=== PATIENT | male | born 1970 | race Caucasian/White ===

== ENCOUNTER 2021-04-30 21:14 | Inpatient (IN) | payer OTHER ==
[~2021-04-30] VITALS: Ht 177.8 cm; Wt 72.8 kg
--- NOTE | 2021-04-30 21:25 | NUR ---
PT BIBA FOR COVID, PT DIAGNOSED WITH COVID ON SUNDAY AND HAS BEEN GETTING PROGRESSIVELY WORSE SINCE, PT BROUGHT IN ON 4LPM NASAL CANULA AND SATURATION IS AT 92%
[2021-04-30] MEDS ORDERED: DEXAMETHASONE 4 MG/ML, 1ML IVPush ONE (21:30)
[2021-04-30] MEDS ORDERED: ACETAMINOPHEN 500 MG TABLET PO ONE (21:30)
[2021-04-30] MEDS ORDERED: SODIUM CHLORIDE FLUSH 10ML SYR IVF ONE (21:30)
[2021-04-30] MEDS ORDERED: SODIUM CHLORIDE 0.9% 1,000ML IVBOLUS ONE (21:30)
[2021-04-30 21:48] LABS: BASOPHILS % (AUTO) 0 % (0-1); EOSINOPHILS % (AUTO) 0 % (1-7); LYMPHOCYTES % (AUTO) 16 % (22-44); MEAN CORPUSCULAR HEMOGLOBIN 27.9 pg (27.5-34.5); MEAN CORPUSCULAR HGB CONC 33.8 g/dL (33.2-36.2); MEAN PLATELET VOLUME 7.8 fL (7.4-10.4); MONOCYTES % (AUTO) 4 % (2-9); NEUTROPHILS % (AUTO) 80 % (42-75); PLATELET COUNT 183 x10^3/uL (130-400); RED BLOOD COUNT 5.24 x10^6/uL (4.38-5.82); RED CELL DISTRIBUTION WIDTH 14.5 % (9.4-14.8)
[2021-04-30 21:55] LABS: ALANINE AMINOTRANSFERASE 48 U/L (12-78); ALBUMIN 2.8 g/dL (3.4-5.0); ANION GAP 11 mmol/L (5-15); CALCIUM 7.9 mg/dL (8.5-10.1); CHLORIDE 97 mmol/L (98-107); CREATININE 0.83 mg/dL (0.7-1.3)
[2021-04-30 21:59] LABS: ALKALINE PHOSPHATASE 57 U/L (45-117); BILIRUBIN,TOTAL 0.5 mg/dL (0.2-1.0); TOTAL PROTEIN 7.8 g/dL (6.4-8.2); TROPONIN I < 0.015 ng/mL (0.000-0.045)
[2021-04-30] MEDS ORDERED: ACETAMINOPHEN 500 MG TABLET ONE (22:02)
[2021-04-30] MEDS ORDERED: DEXAMETHASONE 4 MG/ML, 1ML ONE (22:02)
[2021-04-30] MEDS ORDERED: AZITHROMYCIN 500 MG in SODIUM CHLORIDE 0.9% 250 ML IV ONE (23:00)
[2021-04-30] MEDS ORDERED: CEFTRIAXONE 1,000 MG in DEXTROSE 5% 50 ML IVPB ONE (23:00)
[2021-04-30 23:14] VITALS: BP 97/62
[2021-05-01] MEDS ORDERED: ACETAMINOPHEN 325 MG TABLET PO PRN ×2 (00:30→08:30)
[2021-05-01] MEDS ORDERED: PROCHLORPERAZINE 10MG TABLET PO PRN (00:30)
[2021-05-01] MEDS ORDERED: DOCUSATE 100 MG CAPSULE PO PRN (00:30)
[2021-05-01] MEDS ORDERED: PHARMACY MAY ADJ FOR RENAL FX MC PRN (00:30)
[2021-05-01 00:40] VITALS: BP 90/62
[2021-05-01] MEDS ORDERED: CEFTRIAXONE 1,000 MG in DEXTROSE 5% 50 ML IVPB ONE (01:00)
[2021-05-01] MEDS ORDERED: SODIUM CHLORIDE 0.9% 1,000 ML IV ONE (01:00)
[2021-05-01] MEDS ORDERED: AZITHROMYCIN 500 MG in SODIUM CHLORIDE 0.9% 250 ML IV ONE (01:00)
[2021-05-01] MEDS: CEFTRIAXONE 2 GM in DEXTROSE 5% 50 ML IVPB SCH (01:24)
[2021-05-01] MEDS: ENOXAPARIN 40 MG/0.4 ML SQ SCH (01:24)
[2021-05-01] MEDS: MELATONIN 5 MG TABLET PO SCH ×2 (01:25→20:58)
[2021-05-01] MEDS ORDERED: AZITHROMYCIN 500 MG in SODIUM CHLORIDE 0.9% 250 ML IV SCH (01:30)
[2021-05-01] MEDS: GUAIFENESIN/DM 200-20MG, 10ML UDC PO PRN ×3 (02:01→22:16)
[2021-05-01 02:13] VITALS: BP 101/62
[2021-05-01 03:19] LABS: RAPID INFLUENZA A Negative (Negative); RAPID INFLUENZA B Negative (Negative)
[2021-05-01] MEDS ORDERED: PRED2.5T PO (04:05)
[2021-05-01 04:55] LABS: BASOPHILS % (AUTO) 0 % (0-1); EOSINOPHILS % (AUTO) 0 % (1-7); LYMPHOCYTES % (AUTO) 11 % (22-44); MEAN CORPUSCULAR HGB CONC 33.5 g/dL (33.2-36.2); MEAN PLATELET VOLUME 7.7 fL (7.4-10.4); MONOCYTES % (AUTO) 3 % (2-9); NEUTROPHILS % (AUTO) 86 % (42-75); PLATELET COUNT 161 x10^3/uL (130-400); RED BLOOD COUNT 4.64 x10^6/uL (4.38-5.82); RED CELL DISTRIBUTION WIDTH 14.6 % (9.4-14.8)
[2021-05-01 05:03] LABS: CHLORIDE 104 mmol/L (98-107); D-DIMER 0.46 ug/mlFEU (0.00-0.52); INTERNATIONAL NORMALIZED RATIO 1.06 (0.93-1.1); PARTIAL THROMBOPLASTIN TIME 35 Seconds (25-31); PROTHROMBIN TIME 11.3 Seconds (9.6-11.5)
[2021-05-01 05:04] LABS: FIBRINOGEN > 713 mg/dL (200-340)
[2021-05-01 05:17] LABS: ALANINE AMINOTRANSFERASE 40 U/L (12-78); ALBUMIN 2.2 g/dL (3.4-5.0); ALKALINE PHOSPHATASE 48 U/L (45-117); ANION GAP 9 mmol/L (5-15); BILIRUBIN,TOTAL 0.3 mg/dL (0.2-1.0); CALCIUM 7.4 mg/dL (8.5-10.1); CREATINE KINASE, TOTAL 376 U/L (39-308); CREATININE 0.74 mg/dL (0.7-1.3); TOTAL PROTEIN 6.8 g/dL (6.4-8.2); TROPONIN I < 0.015 ng/mL (0.000-0.045)
[2021-05-01 05:24] LABS: HCT (SEDRATE) 38.7 % (39.2-51.8)
[2021-05-01 06:59] VITALS: BP 99/66
[2021-05-01] MEDS ORDERED: REMDESIVIR 200 MG in SODIUM CHLORIDE 0.9% 250 ML IVPB ONE (09:00)
[2021-05-01] MEDS: SODIUM CHLORIDE 0.9% 1,000 ML IV SCH ×2 (09:50→20:59)
[2021-05-01] MEDS: DEXAMETHASONE 4 MG/ML, 1ML IVPush SCH (09:52)
[2021-05-01] MEDS: CHOLECALCIFEROL 5,000u TAB PO SCH (09:52)
[2021-05-01] MEDS: ZINC SULFATE 220 MG CAPSULE PO SCH (09:52)
[2021-05-01] MEDS: ASCORBIC ACID 500 MG TABLET PO SCH ×2 (09:52→20:58)
[2021-05-01 12:45] VITALS: BP 106/69
[2021-05-01 20:20] VITALS: BP 100/62
[2021-05-02] MEDS: ENOXAPARIN 40 MG/0.4 ML SQ SCH (01:17)
[2021-05-02] MEDS: CEFTRIAXONE 2 GM in DEXTROSE 5% 50 ML IVPB SCH (01:17)
[2021-05-02 01:21] VITALS: BP 104/61
[2021-05-02 06:05] LABS: HCT (SEDRATE) 36.2 % (39.2-51.8)
[2021-05-02 06:19] LABS: ANION GAP 9 mmol/L (5-15); CALCIUM 7.5 mg/dL (8.5-10.1); CHLORIDE 109 mmol/L (98-107)
[2021-05-02 06:29] LABS: ALANINE AMINOTRANSFERASE 38 U/L (12-78); ALKALINE PHOSPHATASE 46 U/L (45-117); BILIRUBIN,TOTAL 0.2 mg/dL (0.2-1.0); CREATINE KINASE, TOTAL 203 U/L (39-308); CREATININE 0.51 mg/dL (0.7-1.3); TOTAL PROTEIN 6.1 g/dL (6.4-8.2)
[2021-05-02 06:33] LABS: BASOPHILS % (AUTO) 0 % (0-1); EOSINOPHILS % (AUTO) 0 % (1-7); LYMPHOCYTES % (AUTO) 6 % (22-44); MEAN CORPUSCULAR HGB CONC 33.4 g/dL (33.2-36.2); MEAN PLATELET VOLUME 8.4 fL (7.4-10.4); MONOCYTES % (AUTO) 4 % (2-9); NEUTROPHILS % (AUTO) 90 % (42-75); PLATELET COUNT 182 x10^3/uL (130-400); RED BLOOD COUNT 4.39 x10^6/uL (4.38-5.82); RED CELL DISTRIBUTION WIDTH 14.8 % (9.4-14.8)
[2021-05-02 08:45] VITALS: BP 113/63
[2021-05-02] MEDS: CHOLECALCIFEROL 5,000u TAB PO SCH (08:55)
[2021-05-02] MEDS: DEXAMETHASONE 4 MG/ML, 1ML IVPush SCH (08:55)
[2021-05-02] MEDS: ASCORBIC ACID 500 MG TABLET PO SCH ×2 (08:56→20:39)
[2021-05-02] MEDS: ZINC SULFATE 220 MG CAPSULE PO SCH (08:56)
[2021-05-02] MEDS: REMDESIVIR 100 MG in SODIUM CHLORIDE 0.9% 250 ML IVPB SCH (10:29)
[2021-05-02] MEDS: SODIUM CHLORIDE 0.9% 1,000 ML IV SCH (10:30)
[2021-05-02 14:23] VITALS: BP 105/63
[2021-05-02] MEDS: GUAIFENESIN/DM 200-20MG, 10ML UDC PO PRN (16:46)
[2021-05-02 20:35] VITALS: BP 99/60
[2021-05-02] MEDS: MELATONIN 5 MG TABLET PO SCH (20:39)
[2021-05-03] MEDS: GUAIFENESIN/DM 200-20MG, 10ML UDC PO PRN ×3 (00:08→17:01)
[2021-05-03] MEDS: SODIUM CHLORIDE 0.9% 1,000 ML IV SCH ×2 (00:56→17:01)
[2021-05-03] MEDS: ENOXAPARIN 40 MG/0.4 ML SQ SCH ×2 (00:56→14:27)
[2021-05-03] MEDS: CEFTRIAXONE 2 GM in DEXTROSE 5% 50 ML IVPB SCH (00:56)
[2021-05-03 01:15] VITALS: BP 105/62
[2021-05-03 04:25] LABS: HCT (SEDRATE) 36.6 % (39.2-51.8)
[2021-05-03 04:26] LABS: BASOPHILS % (AUTO) 0 % (0-1); EOSINOPHILS % (AUTO) 0 % (1-7); LYMPHOCYTES % (AUTO) 9 % (22-44); MEAN CORPUSCULAR HEMOGLOBIN 28.2 pg (27.5-34.5); MEAN CORPUSCULAR HGB CONC 33.7 g/dL (33.2-36.2); MEAN PLATELET VOLUME 8.3 fL (7.4-10.4); MONOCYTES % (AUTO) 4 % (2-9); NEUTROPHILS % (AUTO) 86 % (42-75); PLATELET COUNT 220 x10^3/uL (130-400); RED CELL DISTRIBUTION WIDTH 14.8 % (9.4-14.8)
[2021-05-03 04:36] LABS: ALBUMIN 1.9 g/dL (3.4-5.0); ANION GAP 6 mmol/L (5-15); CALCIUM 7.3 mg/dL (8.5-10.1); CHLORIDE 110 mmol/L (98-107)
[2021-05-03 04:43] LABS: D-DIMER 0.52 ug/mlFEU (0.00-0.52); INTERNATIONAL NORMALIZED RATIO 1.05 (0.93-1.1); PROTHROMBIN TIME 11.2 Seconds (9.6-11.5)
[2021-05-03 04:45] LABS: ALANINE AMINOTRANSFERASE 42 U/L (12-78); ALKALINE PHOSPHATASE 45 U/L (45-117); BILIRUBIN,TOTAL 0.2 mg/dL (0.2-1.0); CREATINE KINASE, TOTAL 123 U/L (39-308); CREATININE 0.52 mg/dL (0.7-1.3)
[2021-05-03] MEDS: ASCORBIC ACID 500 MG TABLET PO SCH ×2 (08:56→20:44)
[2021-05-03] MEDS: DEXAMETHASONE 4 MG/ML, 1ML IVPush SCH (08:56)
[2021-05-03] MEDS: ZINC SULFATE 220 MG CAPSULE PO SCH (08:56)
[2021-05-03] MEDS: CHOLECALCIFEROL 5,000u TAB PO SCH (08:56)
[2021-05-03 09:05] VITALS: BP 111/69
[2021-05-03] MEDS: REMDESIVIR 100 MG in SODIUM CHLORIDE 0.9% 250 ML IVPB SCH (10:01)
[2021-05-03 12:17] VITALS: BP 111/63
[2021-05-03 20:42] VITALS: BP 119/70
[2021-05-03] MEDS: MELATONIN 5 MG TABLET PO SCH (20:45)
[2021-05-04] MEDS: CEFTRIAXONE 2 GM in DEXTROSE 5% 50 ML IVPB SCH (01:08)
[2021-05-04] MEDS: ENOXAPARIN 40 MG/0.4 ML SQ SCH ×2 (01:08→14:14)
[2021-05-04] MEDS: GUAIFENESIN/DM 200-20MG, 10ML UDC PO PRN ×2 (01:11→09:03)
[2021-05-04 01:12] VITALS: BP 123/75
[2021-05-04] MEDS: SODIUM CHLORIDE 0.9% 1,000 ML IV SCH ×3 (06:29→21:46)
[2021-05-04 08:41] VITALS: BP 116/66
[2021-05-04] MEDS: ZINC SULFATE 220 MG CAPSULE PO SCH (09:03)
[2021-05-04] MEDS: ASCORBIC ACID 500 MG TABLET PO SCH ×2 (09:04→21:45)
[2021-05-04] MEDS: DEXAMETHASONE 4 MG TABLET PO SCH (09:04)
[2021-05-04] MEDS: CHOLECALCIFEROL 5,000u TAB PO SCH (09:05)
[2021-05-04] MEDS: REMDESIVIR 100 MG in SODIUM CHLORIDE 0.9% 250 ML IVPB SCH (10:29)
[2021-05-04 10:41] LABS: ALBUMIN 2.2 g/dL (3.4-5.0); ANION GAP 8 mmol/L (5-15); CALCIUM 7.5 mg/dL (8.5-10.1); CHLORIDE 104 mmol/L (98-107)
[2021-05-04 10:44] LABS: ALANINE AMINOTRANSFERASE 76 U/L (12-78); ALKALINE PHOSPHATASE 52 U/L (45-117); BILIRUBIN,TOTAL 0.4 mg/dL (0.2-1.0); CREATININE 0.56 mg/dL (0.7-1.3); TOTAL PROTEIN 6.6 g/dL (6.4-8.2)
[2021-05-04 14:14] VITALS: BP 117/76
[2021-05-04 20:58] VITALS: BP 122/74
[2021-05-04] MEDS: MELATONIN 5 MG TABLET PO SCH (21:45)
[2021-05-05] MEDS: CEFTRIAXONE 2 GM in DEXTROSE 5% 50 ML IVPB SCH (01:02)
[2021-05-05 01:07] VITALS: BP 122/68
[2021-05-05] MEDS: ENOXAPARIN 40 MG/0.4 ML SQ SCH ×2 (01:09→13:16)
[2021-05-05 08:26] VITALS: BP 115/71
[2021-05-05 08:46] LABS: ANION GAP 9 mmol/L (5-15); CALCIUM 8.3 mg/dL (8.5-10.1); CHLORIDE 110 mmol/L (98-107); CREATININE 0.58 mg/dL (0.7-1.3)
[2021-05-05] MEDS: CHOLECALCIFEROL 5,000u TAB PO SCH (10:08)
[2021-05-05] MEDS: DEXAMETHASONE 4 MG TABLET PO SCH (10:08)
[2021-05-05] MEDS: ZINC SULFATE 220 MG CAPSULE PO SCH (10:08)
[2021-05-05] MEDS: ASCORBIC ACID 500 MG TABLET PO SCH ×2 (10:08→20:33)
[2021-05-05] MEDS: REMDESIVIR 100 MG in SODIUM CHLORIDE 0.9% 250 ML IVPB SCH (10:31)
[2021-05-05 12:57] VITALS: BP 120/73
[2021-05-05] MEDS: SODIUM CHLORIDE 0.9% 1,000 ML IV SCH (13:16)
[2021-05-05] MEDS: MELATONIN 5 MG TABLET PO SCH (20:33)
[2021-05-05 20:36] VITALS: BP 129/80
[2021-05-06 00:44] VITALS: BP 113/67
[2021-05-06] MEDS: SODIUM CHLORIDE 0.9% 1,000 ML IV SCH ×2 (01:35→17:10)
[2021-05-06] MEDS: ENOXAPARIN 40 MG/0.4 ML SQ SCH ×2 (01:35→13:04)
[2021-05-06] MEDS: CEFTRIAXONE 2 GM in DEXTROSE 5% 50 ML IVPB SCH (01:35)
[2021-05-06 06:18] LABS: BASOPHILS % (AUTO) 1 % (0-1); EOSINOPHILS % (AUTO) 1 % (1-7); LYMPHOCYTES % (AUTO) 14 % (22-44); MEAN CORPUSCULAR HEMOGLOBIN 27.9 pg (27.5-34.5); MEAN CORPUSCULAR HGB CONC 33.3 g/dL (33.2-36.2); MEAN PLATELET VOLUME 7.3 fL (7.4-10.4); MONOCYTES % (AUTO) 8 % (2-9); NEUTROPHILS % (AUTO) 78 % (42-75); PLATELET COUNT 448 x10^3/uL (130-400); RED BLOOD COUNT 4.62 x10^6/uL (4.38-5.82); RED CELL DISTRIBUTION WIDTH 14.9 % (9.4-14.8)
[2021-05-06 06:30] LABS: CHLORIDE 105 mmol/L (98-107)
[2021-05-06 06:57] LABS: ANION GAP 8 mmol/L (5-15); CALCIUM 8.8 mg/dL (8.5-10.1); CREATININE 0.62 mg/dL (0.7-1.3)
[2021-05-06 07:37] VITALS: BP 115/79
[2021-05-06] MEDS: ZINC SULFATE 220 MG CAPSULE PO SCH (08:48)
[2021-05-06] MEDS: DEXAMETHASONE 4 MG TABLET PO SCH (08:49)
[2021-05-06] MEDS: ASCORBIC ACID 500 MG TABLET PO SCH ×2 (09:00→21:02)
[2021-05-06] MEDS: CHOLECALCIFEROL 5,000u TAB PO SCH (09:00)
[2021-05-06 13:10] VITALS: BP 110/73
[2021-05-06 19:33] VITALS: BP 112/67
[2021-05-06] MEDS: MELATONIN 5 MG TABLET PO SCH (21:02)
[2021-05-07 00:50] VITALS: BP 139/78
[2021-05-07] MEDS: ENOXAPARIN 40 MG/0.4 ML SQ SCH ×2 (01:10→13:05)
[2021-05-07] MEDS: SODIUM CHLORIDE 0.9% 1,000 ML IV SCH ×2 (06:17→21:10)
[2021-05-07] MEDS: ASCORBIC ACID 500 MG TABLET PO SCH ×2 (08:29→20:37)
[2021-05-07] MEDS: ZINC SULFATE 220 MG CAPSULE PO SCH (08:29)
[2021-05-07] MEDS: DEXAMETHASONE 4 MG TABLET PO SCH (08:29)
[2021-05-07] MEDS: CHOLECALCIFEROL 5,000u TAB PO SCH (08:29)
[2021-05-07 09:39] VITALS: BP 110/72
[2021-05-07 13:30] VITALS: BP 109/70
[2021-05-07 20:05] VITALS: BP 122/73
[2021-05-07] MEDS: MELATONIN 5 MG TABLET PO SCH (20:38)
[2021-05-08 01:18] VITALS: BP 136/79
[2021-05-08] MEDS: ENOXAPARIN 40 MG/0.4 ML SQ SCH ×2 (01:21→15:32)
[2021-05-08 06:48] LABS: C-REACTIVE PROTEIN, QUANT 2.2 mg/dL (0.02-0.49)
[2021-05-08 08:15] VITALS: BP 106/72
[2021-05-08] MEDS: CHOLECALCIFEROL 5,000u TAB PO SCH (10:42)
[2021-05-08] MEDS: ZINC SULFATE 220 MG CAPSULE PO SCH (10:42)
[2021-05-08] MEDS: ASCORBIC ACID 500 MG TABLET PO SCH ×2 (10:43→19:30)
[2021-05-08] MEDS: DEXAMETHASONE 4 MG TABLET PO SCH (10:43)
[2021-05-08 14:02] VITALS: BP 107/68
[2021-05-08] MEDS: SODIUM CHLORIDE 0.9% 1,000 ML IV SCH (18:07)
[2021-05-08 19:25] VITALS: BP 104/67
[2021-05-08] MEDS: MELATONIN 5 MG TABLET PO SCH (19:30)
[2021-05-09 01:32] VITALS: BP 128/80
[2021-05-09] MEDS: ENOXAPARIN 40 MG/0.4 ML SQ SCH ×2 (02:38→16:41)
[2021-05-09 07:50] VITALS: BP 127/79
[2021-05-09] MEDS: DEXAMETHASONE 4 MG TABLET PO SCH (09:56)
[2021-05-09] MEDS: ASCORBIC ACID 500 MG TABLET PO SCH ×2 (09:56→21:51)
[2021-05-09] MEDS: CHOLECALCIFEROL 5,000u TAB PO SCH (09:56)
[2021-05-09] MEDS: ZINC SULFATE 220 MG CAPSULE PO SCH (09:56)
[2021-05-09] MEDS ORDERED: ZINC220C8 PO (10:15)
[2021-05-09] MEDS ORDERED: RIVA10TA2 PEG (10:15)
[2021-05-09] MEDS ORDERED: CHOL500045 PO (10:15)
[2021-05-09] MEDS ORDERED: DEXA4TAB66 PO (10:15)
[2021-05-09] MEDS ORDERED: ASCO500T9 PO (10:15)
[2021-05-09] MEDS: SODIUM CHLORIDE 0.9% 1,000 ML IV SCH (10:18)
[2021-05-09 13:25] VITALS: BP 111/71
[2021-05-09 19:56] VITALS: BP 114/76
[2021-05-09] MEDS: MELATONIN 5 MG TABLET PO SCH (21:51)
== END 2021-05-09 22:45 | disposition home or self-care (01) | DRG 871 ==
LOC: ED 21:30 → 3N 21:45
PROVIDERS: ADMIT Family Medicine; ATTEND Internal Medicine
PROC: XW033E5 Introduction of Remdesivir Anti-infective into Peripheral Vein, Percutaneous Approach, New Technology Group 5 (ICD-10-PCS; principal; 2021-05-01)
PROC: 5A0945A Assistance with Respiratory Ventilation, 24-96 Consecutive Hours, High Flow/Velocity Cannula (ICD-10-PCS; 2021-05-01)
DX: A41.9 Sepsis, unspecified organism (principal); J12.82 Pneumonia due to coronavirus disease 2019; J96.01 Acute respiratory failure with hypoxia; U07.1 COVID-19; E87.1 Hypo-osmolality and hyponatremia; M62.82 Rhabdomyolysis; E83.51 Hypocalcemia; M19.90 Unspecified osteoarthritis, unspecified site; R74.01 Elevation of levels of liver transaminase levels; Z56.0 Unemployment, unspecified
CPT/HCPCS: 36415; 36600; 71045; 80048; 80053; 82330; 82550; 82728; 82803; 83615; 83735; 83880; 84484; 85025; 85379; 85384; 85610; 85651; 85730; 86140; 87040; 87400; 93005; 96361; 96374; 99285; G0378; J0456; J0696; J1100; J1650; U0005; J7030; J7050; U0003